=== PATIENT | female | born 1985 | race Caucasian/White ===

== ENCOUNTER 2019-06-03 16:34 | Emergency (ER) | payer OTHER, MEDICAID, SELFPAY ==
[2019-06-03 17:00] VITALS: BP 117/70; PULSE 80; RESP 13; TEMP 37.1; O2SAT 100
[2019-06-03] MEDS: SILVER SULFADIAZINE 1% CREAM 50 GM 1 APPLIC TOP (18:09)
[2019-06-03] MEDS: DOXYCYCLINE HYCLATE 100 MG TABLET PO (18:10)
[2019-06-03] MEDS: TETANUS DIPHTHERIA TOXOIDS 0.5 ML VIAL IM (18:22)
[2019-06-03 18:40] VITALS: BP 126/77; PULSE 73; O2SAT 100
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
== END 2019-06-03 18:48 | disposition home or self-care (01) ==
PROVIDERS: Emergency Provider Nurse Practitioner Family
DX: L03.311 Cellulitis of abdominal wall (principal); T21.02XA Burn of unspecified degree of abdominal wall, initial encounter; X12.XXXA Contact with other hot fluids, initial encounter; Z23 Encounter for immunization
CPT/HCPCS: 90471; 90714; 99283

== ENCOUNTER 2019-06-11 19:09 | Emergency (ER) | payer OTHER, MEDICAID, SELFPAY ==
[2019-06-11 19:18] VITALS: BP 110/64; PULSE 93; RESP 14; TEMP 37.3; O2SAT 100
[2019-06-11] MEDS: SILVER SULFADIAZINE 1% CREAM 50 GM 1 APPLIC TOP (19:34)
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
== END 2019-06-11 19:45 | disposition home or self-care (01) ==
PROVIDERS: Emergency Provider Nurse Practitioner Family
DX: T21.02XA Burn of unspecified degree of abdominal wall, initial encounter (principal); L03.818 Cellulitis of other sites
CPT/HCPCS: 99281

== ENCOUNTER 2024-11-02 08:36 | Emergency (ER) | payer SELFPAY ==
[2024-11-02 08:52] VITALS: BP 109/74; PULSE 98; O2SAT 99
[2024-11-02 09:00] VITALS: BP 111/81; PULSE 89; O2SAT 98
[2024-11-02 09:06] VITALS: BP 109/74; PULSE 89; RESP 12; TEMP 36.6; O2SAT 99; BMI 19.0
[2024-11-02 09:10] VITALS: BMI 19.0
--- NOTE | 2024-11-02 09:14 | DI.US.S_ITS ---
PROCEDURE: US PELVIC COMPLETE INDICATIONS: 9 WEEKS PREG; HEAVY BLEEDING TECHNIQUE: Real-time scanning was performed of the pelvic organs, with image documentation. Additional endovaginal scanning was necessary due to incomplete visualization of the adnexal and endometrial structures by transabdominal scanning. COMPARISON: None. FINDINGS: Uterus: Uterus is anteverted and normal in size at 3.4 x 7.3 x 8.2 cm. The myometrium is homogeneous. The endometrium measures 3 mm combined thickness. No evidence of intrauterine Ovaries: Right ovary not visualized. Left ovary unremarkable. No adnexal mass. Other: No pathologic free abdominal or pelvic fluid. IMPRESSION: No evidence of intrauterine or retained products of conception Approved by: Miguelangel Maurice M.D. on 11/02/2024 at 9:43
--- NOTE | 2024-11-02 09:16 | ED_ITS ---
HPI - Female Genitourinary General Chief complaint: Vaginal Bleeding Stated complaint: Possible miscarriage Time Seen by Provider: 11/02/24 09:15 Source: patient and family Mode of arrival: Ambulatory Limitations: no limitations History of Present Illness HPI Narrative: 39-year-old female last menstrual period was 08/2024 reports positive test. Patient notes some mild abdominal cramping for the past 2 days and had bright red blood with spotting and a large gush of blood today. Patient states really did have any bleeding before today no spotting prior. She states pain is very minimal. She denies syncope, no fevers. Has a little nauseated yesterday. No vomiting. No chest pain or shortness of breath. No issues with bowel movements or urination. Patient states has been in the process of setting up appointments. Patient states no daily medications. No allergies reported. No regular tobacco, no daily alcohol no recreational drugs. She is accompanied by her sister and family friend. Patient notes she is A positive. Patient defers anything for pain. Review of Systems Review of Systems ROS Unobtainable: All systems reviewed & are unremarkable except as noted in HPI and below Patient History Medical History (Updated 11/02/24 @ 11:22 by Neena Evans DO) No significant past medical history Surgical History No pertinent past surgical history Exam Narrative Exam Narrative: GENERAL: Alert and oriented x three, thin female in mild distress HEENT: Head normocephalic, atraumatic, EOMI, pupils reactive, face symmetric, moist mucous membranes NECK: Supple, full range of motion CARDIOVASCULAR: Regular rate and rhythm without murmurs, rubs or gallops. RESPIRATORY: Breath sounds equal bilaterally, no wheezes rales or rhonchi. ABDOMEN: Soft, nontender. Nondistended. Normoactive bowel sounds all 4 quadrants. No guarding or rebound, rigidity, no mass : No CVA tenderness EXTREMITIES: Normal range of motion, no clubbing or edema. Neurovascularly intact NEUROLOGICAL: Cranial nerves II through XII grossly intact. Moving all extremities SKIN: Warm, dry, no petechiae, no rashes or lesions. Initial Vital Signs Initial Vital Signs: Vital Signs Pulse Rate 98 H 11/02/24 08:52 Blood Pressure 109/74 11/02/24 08:52 Pulse Oximetry 99 09/21/25 08:52 Course Orders Ordered: ED Orders 11/02/24 09:34 ABO RH Type Stat Complete Blood Count AUTO DIFF Stat Comprehensive Metabolic Panel Stat HCG Quantitative /Beta subunit Stat Vital Signs Vital signs: Vital Signs - 8 hr 11/02/24 11:31 11/02/24 11:41 Temperature 97 F L Pulse Rate 97 H Respiratory Rate 14 Blood Pressure 113/68 Pulse Oximetry 98 Oxygen Delivery Method Room Air MDM - Female Genitourinary Lab Data 11/02/24 09:34 11/02/24 09:34 Labs: Lab Results 11/02/24 Range/Units 09:34 WBC 9.7 (4.5-11.0) X10^3/uL RBC 4.45 (4.0-5.2) X10^6/uL Hgb 13.4 (12.0-16.0) g/dL Hct 39.4 (36-46) % MCV 88.5 (80-100) fL MCH 30.0 (26-34) PG MCHC 33.9 (30-36) % RDW 12.7 (11.6-14.8) % Plt Count 257 (150-400) X10^3/uL Neut % (Auto) 80.2 H (50-75) % Lymph % (Auto) 11.1 L (25-40) % [place] % (Auto) 7.8 (3-14) % Eos % (Auto) 0.6 L (2-4) % Baso % (Auto) 0.3 (0-2) % Neut # (Auto) 7800 H (1237-9299) /uL Lymph # (Auto) 1100 (2429-3231) /uL [place] # (Auto) 800 (0-900) /uL Eos # (Auto) 100 (0-450) /uL Baso # (Auto) 0 (0-100) /uL Sodium 133 L (137-145) mmol/L Potassium 4.0 (3.4-5.1) mmol/L Chloride 104 (98-107) mmol/L Carbon Dioxide 21 L (22-32) mmol/L BUN 7 (7-17) mg/dL Creatinine 0.59 (0.52-1.04) mg/dL Estimated GFR > 60 (>60) mL/min BUN/Creatinine Ratio 11.9 (6-22) Glucose 88 (70-99) mg/dL Calcium 8.7 (8.4-10.2) mg/dL Total Bilirubin 0.4 (0.2-1.3) mg/dL AST 24 (14-36) IU/L ALT 13 (<35) IU/L Alkaline Phosphatase 42 (38-126) U/L Total Protein 6.9 (6.3-8.2) g/dL Albumin 3.9 (3.5-5.0) g/dL Globulin 3.0 (1.7-4.1) g/dL Albumin/Globulin Ratio 1.3 (1.0-2.8) HCG, Quant 71352 mIU/mL Blood Type A Positive MDM Narrative Medical decision making narrative: Labs normal white count, hemoglobin and platelets, sodium is 133 CO2 is 21 chemistries are otherwise appropriate. HCG is greater than 15,000 Blood type is A positive Ultrasound pelvic complete shows no evidence answering or retained products of conception. Right ovary not visualized left ovary is unremarkable. No adnexal mass. No pathologic free abdominal or pelvic fluid. Patient states she has O-positive. Spoke with the patient appears may have had a missed miscarriage or complete miscarriage but would have her follow up for repeat hCG and ultrasound as right ovary was not visualized but there was no pathologic free fluid. Reviewed with the patient need for follow up. She expressed understanding. Discussed ectopic seems unlikely but should have repeat HCGs and possibly ultrasound imaging. Patient does not have follow up currently we will give contact for museum security chief. Discussed return precautions patient expresses understanding. Discharge Plan Departure Patient Disposition: Home Clinical Impression: Miscarriage Instructions: DI for Miscarriage Activity Restrictions/Additional Instructions: Follow up with museum security chief for serial hCG levels and possibly repeat ultrasound. If you do not have a provider you can follow up with the museum security chief included below. Your ultrasound does not visualize your right ovary very well but there was no free fluid or other changes. Appears you have likely had a miscarriage. Can take acetaminophen and/ibuprofen as needed for pain. Please return if you develop fevers, rapidly worsening abdominal back or flank pain, passing out, persistent vomiting, going through more than a pad or tampon an hour with bleeding or other new or concerning changes. Referrals: River Tse MD [Physician, PUTAWAY DRIVER] Stand Alone Forms: Patient Portal/API
[2024-11-02 09:43] LABS: Add Manual Diff / Slide Review NO; Hematocrit 39.4 % (36-46); Hemoglobin 13.4 g/dL (12.0-16.0); Lymphocytes Absolute Auto 1100 /uL (1100-4500); Mean Corpuscular HGB Conc 33.9 % (30-36); Mean Corpuscular Hemoglobin 30.0 PG (26-34); Mean Corpuscular Volume 88.5 fL (80-100); Platelet Count 257 X10^3/uL (150-400)
[2024-11-02 10:46] LABS: Alanine Aminotransferase 13 IU/L (<35); Albumin 3.9 g/dL (3.5-5.0); Albumin Globulin Ratio 1.3 (1.0-2.8); Alkaline Phosphatase 42 U/L (38-126); Blood Urea Nitrogen 7 mg/dL (7-17); Calcium 8.7 mg/dL (8.4-10.2); Carbon Dioxide 21 mmol/L (22-32); Chloride 104 mmol/L (98-107); Estimated Glomerular Filt Rate > 60 mL/min (>60); Globulin 3.0 g/dL (1.7-4.1); Glucose 88 mg/dL (70-99); HEMOLYSIS < 15 (0-50); Potassium 4.0 mmol/L (3.4-5.1); Sodium 133 mmol/L (137-145); Total Protein 6.9 g/dL (6.3-8.2)
[2024-11-02 11:31] VITALS: PULSE 97; RESP 14; TEMP 36.1; O2SAT 98
[2024-11-02 11:39] LABS: HCG Quantitative /Beta subunit 95343 mIU/mL
[2024-11-02 11:41] VITALS: BP 113/68
== END 2024-11-02 11:42 | disposition home or self-care (01) ==
PROVIDERS: Emergency Provider Emergency Medicine
DX: O03.9 Complete or unspecified spontaneous abortion without complication (principal)
CPT/HCPCS: 76830; 76856; 80053; 84702; 85025; 86900; 86901; 99283; 99284

== ENCOUNTER → 2024-11-05 16:44 | Emergency (ER) | payer SELFPAY ==
[2024-11-05 17:10] VITALS: BP 110/73; PULSE 81; RESP 16; TEMP 36.8; O2SAT 98; BMI 19.0
--- NOTE | 2024-11-05 18:10 | ED.PREGNANCY ---
HPI - <Astrid Louis PA-C - Last Filed: 11/05/24 18:55> General Chief complaint: Vaginal Bleeding Stated complaint: had miscarriage 3days ago in pain Time Seen by Provider: 11/05/24 17:27 Source: patient Mode of arrival: Family Vehicle Limitations: no limitations History of Present Illness HPI Narrative: Leah Schwartz is a pleasant 39-year-old female, , positive home test with LMP 08/31/2024 (9 weeks 3 days based on LMP) who presents to the emergency department for pain and vaginal bleeding with suspected miscarriage 3 days ago. This current was unexpected for the patient, she is a 17 and 12-year-old born vaginally. She was in the ER on 11/02/2024 she was experiencing vaginal bleeding in . At that time her hCG quant was elevated and her ultrasound did not reveal an IUP and there was concern for completed miscarriage at that time she was recommended to follow up for serial HCGs/ultrasound. She was however instructed to return to the ER if she developed any pain, patient states yesterday she did develop pain in the right lower quadrant of her abdomen and occasionally the left lower quadrant as well. She describes this pain is intermittent with a dull pressure in her suprapubic region as well especially with having a bowel movement. Reports bleeding at this time is very minimal with just very faint spotting. She denies chest pain, shortness of breath, fevers, chills, dysuria. Related Data Allergies Allergy/AdvReac Type Severity Reaction Status Date / Time No Known Drug Allergies Allergy Verified 11/05/24 10:41 Review of Systems <Astrid Louis PA-C - Last Filed: 11/05/24 18:55> Review of Systems ROS Unobtainable: All systems reviewed & are unremarkable except as noted in HPI and below Exam <Astrid Louis PA-C - Last Filed: 11/05/24 18:55> Narrative Exam Narrative: GENERAL: 39 year old patient appears stated age. Well-developed patient, in no acute distress. HEAD: Atraumatic. Normocephalic. EYES: No scleral icterus. No injection or drainage. NECK: Trachea midline. Cervical ROM intact. CARDIOVASCULAR: Regular rate and rhythm. RESPIRATORY: ?Nonlabored respirations. ?Speaking in clear, full sentences. ?Clear to auscultation. Breath sounds equal bilaterally. No wheezes, rales, or rhonchi. ? GASTROINTESTINAL: Subjective tenderness to palpation of the right lower quadrant of the pelvis with no rebound or guarding. Bowel sounds present. Initial exam performed in triage room, pelvic exam deferred at this time. EXTREMITIES: No LE edema. BACK: No flank tenderness. NEURO: AOx3. ?Clear speech. ?Moves all 4 extremities appropriately. SKIN: No rash or erythema of visible areas Initial Vital Signs Initial Vital Signs: Vital Signs Temperature 98.2 F 11/05/24 17:10 Pulse Rate 81 11/05/24 17:10 Respiratory Rate 16 11/05/24 17:10 Blood Pressure 110/73 11/05/24 17:10 Pulse Oximetry 98 11/05/24 17:10 Oxygen Delivery Method Room Air 11/05/24 17:10 <Marina Alexis DO - Last Filed: 11/06/24 01:08> Initial Vital Signs Initial Vital Signs: Vital Signs Temperature 98.2 F 11/05/24 17:10 Pulse Rate 81 11/05/24 17:10 Respiratory Rate 16 11/05/24 17:10 Blood Pressure 110/73 11/05/24 17:10 Pulse Oximetry 98 11/05/24 17:10 Oxygen Delivery Method Room Air 11/05/24 17:10 Course <Astrid Louis PA-C - Last Filed: 11/05/24 18:55> Orders Ordered: ED Orders 11/05/24 18:11 Complete Blood Count AUTO DIFF Stat Comprehensive Metabolic Panel Stat HCG Quantitative /Beta subunit Stat PT [Prothrombin Time INR] Stat PTT Partial Thromboplastin Nader Stat 11/05/24 18:15 Ictotest Urine Stat Urine Culture Stat Urine Microscopic Stat 11/05/24 18:16 US pelvic complete Stat Discontinued Medications Methotrexate (Methotrexate 25 Mg/Ml Vial) 80 mg 50 mg/m2 (80 mg) IM NOW ONE Stop: 11/05/24 20:52 Last Admin: 11/05/24 22:19 Dose: 80 mg Documented By: LIYAH Vital Signs Vital signs: Vital Signs - 8 hr 11/05/24 17:10 11/05/24 22:23 11/05/24 22:24 Temperature 98.2 F Pulse Rate 81 Respiratory Rate 16 Blood Pressure 110/73 106/68 Pulse Oximetry 98 97 Oxygen Delivery Method Room Air 11/05/24 22:24 11/05/24 22:31 Temperature Pulse Rate 70 67 Respiratory Rate 16 Blood Pressure 106/68 Pulse Oximetry 99 99 Oxygen Delivery Method Room Air <Marina Alexis DO - Last Filed: 11/06/24 01:08> Orders Ordered: ED Orders 11/05/24 18:11 Complete Blood Count AUTO DIFF Stat Comprehensive Metabolic Panel Stat HCG Quantitative /Beta subunit Stat PT [Prothrombin Time INR] Stat PTT Partial Thromboplastin Nader Stat 11/05/24 18:15 Ictotest Urine Stat Urine Culture Stat Urine Microscopic Stat 11/05/24 18:16 US pelvic complete Stat Discontinued Medications Methotrexate (Methotrexate 25 Mg/Ml Vial) 80 mg 50 mg/m2 (80 mg) IM NOW ONE Stop: 11/05/24 20:52 Last Admin: 11/05/24 22:19 Dose: 80 mg Documented By: LIYAH Vital Signs Vital signs: Vital Signs - 8 hr 11/05/24 17:10 11/05/24 22:23 11/05/24 22:24 Temperature 98.2 F Pulse Rate 81 Respiratory Rate 16 Blood Pressure 110/73 106/68 Pulse Oximetry 98 97 Oxygen Delivery Method Room Air 11/05/24 22:24 11/05/24 22:31 Temperature Pulse Rate 70 67 Respiratory Rate 16 Blood Pressure 106/68 Pulse Oximetry 99 99 Oxygen Delivery Method Room Air MDM - OB/Uterine Contractions <Astrid Louis PA-C - Last Filed: 11/05/24 18:55> Medical Records Attestation: I reviewed the patient's medical records. Lab Data 11/05/24 18:11 11/05/24 18:11 Labs: Lab Results 11/05/24 11/05/24 Range/Units 18:11 18:15 WBC 9.1 (4.5-11.0) X10^3/uL RBC 4.42 (4.0-5.2) X10^6/uL Hgb 13.3 (12.0-16.0) g/dL Hct 39.1 (36-46) % MCV 88.3 (80-100) fL MCH 30.1 (26-34) PG MCHC 34.1 (30-36) % RDW 12.7 (11.6-14.8) % Plt Count 286 (150-400) X10^3/uL Neut % (Auto) 76.1 H (50-75) % Lymph % (Auto) 16.4 L (25-40) % [place] % (Auto) 6.3 (3-14) % Eos % (Auto) 0.8 L (2-4) % Baso % (Auto) 0.4 (0-2) % Neut # (Auto) 6900 (9307-3239) /uL Lymph # (Auto) 1500 (7052-7276) /uL [place] # (Auto) 600 (0-900) /uL Eos # (Auto) 100 (0-450) /uL Baso # (Auto) 0 (0-100) /uL PT 9.8 (9.4-12.5) SECONDS INR 0.9 (0.9-1.3) APTT 27 (25.1-36.5) SECONDS Sodium 136 L (137-145) mmol/L Potassium 4.0 (3.4-5.1) mmol/L Chloride 105 (98-107) mmol/L Carbon Dioxide 26 (22-32) mmol/L BUN 10 (7-17) mg/dL Creatinine 0.64 (0.52-1.04) mg/dL Estimated GFR > 60 (>60) mL/min BUN/Creatinine Ratio 15.6 (6-22) Glucose 118 H (70-99) mg/dL Calcium 9.1 (8.4-10.2) mg/dL Total Bilirubin 0.3 (0.2-1.3) mg/dL AST 33 (14-36) IU/L ALT 25 (<35) IU/L Alkaline Phosphatase 44 (38-126) U/L Total Protein 7.4 (6.3-8.2) g/dL Albumin 4.2 (3.5-5.0) g/dL Globulin 3.2 (1.7-4.1) g/dL Albumin/Globulin Ratio 1.3 (1.0-2.8) HCG, Quant 8312.9 mIU/mL Ur Bilirubin Confirm Negative (Negative) Urine RBC 0-1/hpf (0-5/HPF) Urine WBC None seen (0-5/HPF) Ur Squamous Epith Cells 1-5 /hpf (0-5/HPF) Urine Bacteria None seen (None) Vol Urine Centrifuged 10ml (spun) Urine Dip Bedside Urine Glucose Negative Bedside Urine Bilirubin + 1 Bedside Urine Ketone +/- 5 Urine Specific [place] 1.030 Bedside Urine Occult Blood +++ Bedside Urine pH 6.0 Bedside Urine Protein +/- 15 Bedside Urine Urobilinogen - Negative Bedside Urine Nitrite - Negative Bedside Urine Leukocytes - Negative Esterase MDM Narrative Medical decision making narrative: 39-year-old female, , positive home test with LMP 08/31/2024 (9 weeks 3 days based on LMP) who presents to the emergency department for pain and vaginal bleeding with suspected miscarriage 3 days ago. Differential diagnosis includes but is not limited to miscarriage, retained products of conception, ovarian cyst, fibroids, ectopic , etc. On exam the patient is in no acute distress, nontoxic-appearing, all vital signs within normal limits. She does have mild tenderness to palpation of the right lower quadrant of the abdomen. Reviewed ER visit from 11/02/2024 which revealed an hCG quant of 95,343 and a pelvic ultrasound with no evidence of intrauterine or retained products of conception. Patient was diagnosed with a miscarriage at that time, she was pain-free at that time, however today she comes in with pain since yesterday. We will repeat hCG quant, ultrasound, CBC, CMP, coags. Blood type is A positive, confirmed last visit. Labs reveal hCG quant of 8,312.9 which has gone down significantly from 3 days ago. Remainder of labs are reassuring with normal WBC count 9.1, hemoglobin 13.3 hematocrit 39.1. Normal coags. Sodium 136, potassium 4.0. BUN 10 creatinine 0.64. Normal LFTs. 1900: Due to shift change, transfer of care to Dr. Alexis. Pelvic US is pending at this time. <Marina Alexis, DO - Last Filed: 11/06/24 01:08> Lab Data Labs: Lab Results 11/05/24 11/05/24 Range/Units 18:11 18:15 WBC 9.1 (4.5-11.0) X10^3/uL RBC 4.42 (4.0-5.2) X10^6/uL Hgb 13.3 (12.0-16.0) g/dL Hct 39.1 (36-46) % MCV 88.3 (80-100) fL MCH 30.1 (26-34) PG MCHC 34.1 (30-36) % RDW 12.7 (11.6-14.8) % Plt Count 286 (150-400) X10^3/uL Neut % (Auto) 76.1 H (50-75) % Lymph % (Auto) 16.4 L (25-40) % [place] % (Auto) 6.3 (3-14) % Eos % (Auto) 0.8 L (2-4) % Baso % (Auto) 0.4 (0-2) % Neut # (Auto) 6900 (5315-9905) /uL Lymph # (Auto) 1500 (8979-2452) /uL [place] # (Auto) 600 (0-900) /uL Eos # (Auto) 100 (0-450) /uL Baso # (Auto) 0 (0-100) /uL PT 9.8 (9.4-12.5) SECONDS INR 0.9 (0.9-1.3) APTT 27 (25.1-36.5) SECONDS Sodium 136 L (137-145) mmol/L Potassium 4.0 (3.4-5.1) mmol/L Chloride 105 (98-107) mmol/L Carbon Dioxide 26 (22-32) mmol/L BUN 10 (7-17) mg/dL Creatinine 0.64 (0.52-1.04) mg/dL Estimated GFR > 60 (>60) mL/min BUN/Creatinine Ratio 15.6 (6-22) Glucose 118 H (70-99) mg/dL Calcium 9.1 (8.4-10.2) mg/dL Total Bilirubin 0.3 (0.2-1.3) mg/dL AST 33 (14-36) IU/L ALT 25 (<35) IU/L Alkaline Phosphatase 44 (38-126) U/L Total Protein 7.4 (6.3-8.2) g/dL Albumin 4.2 (3.5-5.0) g/dL Globulin 3.2 (1.7-4.1) g/dL Albumin/Globulin Ratio 1.3 (1.0-2.8) HCG, Quant 8312.9 mIU/mL Ur Bilirubin Confirm Negative (Negative) Urine RBC 0-1/hpf (0-5/HPF) Urine WBC None seen (0-5/HPF) Ur Squamous Epith Cells 1-5 /hpf (0-5/HPF) Urine Bacteria None seen (None) Vol Urine Centrifuged 10ml (spun) Urine Dip Bedside Urine Glucose Negative Bedside Urine Bilirubin + 1 Bedside Urine Ketone +/- 5 Urine Specific [place] 1.030 Bedside Urine Occult Blood +++ Bedside Urine pH 6.0 Bedside Urine Protein +/- 15 Bedside Urine Urobilinogen - Negative Bedside Urine Nitrite - Negative Bedside Urine Leukocytes - Negative Esterase MDM Narrative Medical decision making narrative: 39-year-old female, , positive home test with LMP 08/31/2024 (9 weeks 3 days based on LMP) who presents to the emergency department for pain and vaginal bleeding with suspected miscarriage 3 days ago. Differential diagnosis includes but is not limited to miscarriage, retained products of conception, ovarian cyst, fibroids, ectopic , etc. On exam the patient is in no acute distress, nontoxic-appearing, all vital signs within normal limits. She does have mild tenderness to palpation of the right lower quadrant of the abdomen. Reviewed ER visit from 11/02/2024 which revealed an hCG quant of 95,343 and a pelvic ultrasound with no evidence of intrauterine or retained products of conception. Patient was diagnosed with a miscarriage at that time, she was pain-free at that time, however today she comes in with pain since yesterday. We will repeat hCG quant, ultrasound, CBC, CMP, coags. Blood type is A positive, confirmed last visit. Labs reveal hCG quant of 8,312.9 which has gone down significantly from 3 days ago. Remainder of labs are reassuring with normal WBC count 9.1, hemoglobin 13.3 hematocrit 39.1. Normal coags. Sodium 136, potassium 4.0. BUN 10 creatinine 0.64. Normal LFTs. 1899: Due to shift change, transfer of care to Dr. Alexis. Pelvic US is pending at this time. 1929 Dr. Alexis-patient is signed out to me by PAC, I have seen evaluated patient might self. She is quite tender on the right side. Reports that she initially came in on the with some vaginal bleeding she reports significant slow of vaginal bleeding now just having spotting but really had intense right lower quadrant pain today. Vitals are stable she is not anemic but on exam she is tender. Ultrasound does show concern for possible right ectopic 1999 Dr. Rehman, OBGYN updated patient's symptoms test results and we will be in to see and evaluate patient. At this time treat only medically with IM methotrexate. Follow-up as an outpatient. Patient continues to appear well nonacute abdomen. Explained to family and sister who is quite concerned workup and test results, along with need for follow-up. Discharge Plan Departure Patient Disposition: Home Clinical Impression: Miscarriage, Adnexal mass Instructions: Ectopic , DI for Miscarriage Activity Restrictions/Additional Instructions: *You have been diagnosed with miscarriage *What to do: At this time please follow up with test driller, call tomorrow to schedule a follow up appointment. Expect to have some cramping *Continue to take medications as directed Tylenol Motrin as needed for pain *Follow up with your primary care provider in 2-3 days or call [phone] *Return to ER if you should have increasing pain passing out, or any new, worsening or concerning symptoms Referrals: Jimena Fuentes MD [Physician, SUPERVISOR LEAF [employer]ING REPAIR] Adelaida Zamarripa MD [Physician, SUPERVISOR [employer] SPRING REPAIR] Martha Langston DO [Physician, SUPERVISOR LE[employer] SPRING REPAIR] River Tse MD [Physician, SUPERVISOR LEAF [employer]ING REPAIR] Stand Alone Forms: Patient Portal/API
--- NOTE | 2024-11-05 18:16 | DI.US.S_ITS ---
PROCEDURE: US PELVIC COMPLETE INDICATIONS: ectopic? miscarriage? LMP 08/31/24; RLQ pain. Beta HCG was 95,000 on 11/02/24, and it now is less than 10,000. TECHNIQUE: Real-time scanning was performed of the pelvic organs, with image documentation. Additional endovaginal scanning was necessary due to incomplete visualization of the adnexal and endometrial structures by transabdominal scanning. COMPARISON: [facility], , US PELVIC COMPLETE, 11/02/2024, 9:11. FINDINGS: Uterus: Uterus is anteverted and enlarged in size at 12.2 x 8.8 x 8.2 cm. The myometrium is heterogeneous. The endometrium measures 21.2 mm combined thickness. Ovaries: The right ovary measures 1.9 x 3.8 x 2.5 cm, with a calculated ovarian volume of 9.2 cc. The left ovary measures 1.7 x 2.8 x 1.9 cm, with a calculated ovarian volume of 4.6 cc. The ovaries have a normal sonographic appearance. Less than 12 follicles can be seen in each ovary. No adnexal masses are seen. Possible right ovarian ectopic, not definite. It measures 2.3 x 1.5 x 1.9 cm. Other: No pathologic free abdominal or pelvic fluid. IMPRESSION: Question possible right ovarian ectopic . Significantly diminishing beta HCG level suggests that it may be a non living ectopic. No intrauterine . Comment: Comment: Findings were discussed with Dr. Alexis on 11/05/2024 at 1946 hours We strive to produce accurate, complete, and clear reports of imaging services. To assist us in improving patient care, this report was composed using standard report templates and voice recognition software. Therefore, it may contain abnormal punctuation, insertions and/or omissions. Occasional wrong-word or sound-alike substitutions may occur. Though we review the report and make efforts to correct it, we do recommend that the report be read carefully in proper context to recognize any text inaccuracies. Dictated by: Adalberto Holman M.D. on 11/05/2024 at 19:40 Approved by: Adalberto Holman M.D. on 11/05/2024 at 19:48
[2024-11-05 18:19] LABS: Add Manual Diff / Slide Review NO; Hematocrit 39.1 % (36-46); Hemoglobin 13.3 g/dL (12.0-16.0); Lymphocytes Absolute Auto 1500 /uL (1100-4500); Mean Corpuscular HGB Conc 34.1 % (30-36); Mean Corpuscular Hemoglobin 30.1 PG (26-34); Mean Corpuscular Volume 88.3 fL (80-100); Platelet Count 286 X10^3/uL (150-400)
[2024-11-05 18:28] LABS: INR 0.9 (0.9-1.3); Prothrombin Time 9.8 SECONDS (9.4-12.5)
[2024-11-05 18:31] LABS: PTT Partial Thromboplastin Tim 27 SECONDS (25.1-36.5)
[2024-11-05 18:33] LABS: Alanine Aminotransferase 25 IU/L (<35); Albumin 4.2 g/dL (3.5-5.0); Albumin Globulin Ratio 1.3 (1.0-2.8); Alkaline Phosphatase 44 U/L (38-126); Blood Urea Nitrogen 10 mg/dL (7-17); Calcium 9.1 mg/dL (8.4-10.2); Carbon Dioxide 26 mmol/L (22-32); Chloride 105 mmol/L (98-107); Estimated Glomerular Filt Rate > 60 mL/min (>60); Globulin 3.2 g/dL (1.7-4.1); Glucose 118 mg/dL (70-99); HEMOLYSIS < 15 (0-50); Potassium 4.0 mmol/L (3.4-5.1); Sodium 136 mmol/L (137-145); Total Protein 7.4 g/dL (6.3-8.2)
[2024-11-05 19:46] LABS: Ictotest Urine Negative (Negative)
--- NOTE | 2024-11-05 20:56 | P.HPOB_ITS ---
History of Present Illness History of Present Illness Reason for admission: vaginal bleeding and ectopic Narrative: Leah Schwartz is a 39 year old female with LMP 08/31/2024 presenting for RLQ cramping and vaginal bleeding. This was an undesired . Pain is crampy in nature, hurts more when she changes positions. She has experienced much worse pain in the past when she has had ovarian cyst ruptures. She was here on 11/02 a few days ago for vaginal bleeding and RLQ discomfort, with bleeding that included clots and tissue which has since resolved. Now only slight spotting. This was a surprise and she does not desire future . [facility] Medical History (Updated 11/05/24 @ 21:43 by Phyllis Rehman DO) No significant past medical history Surgical History No pertinent past surgical history Meds Home Medications and Allergies Allergies Allergy/AdvReac Type Severity Reaction Status Date / Time No Known Drug Allergies Allergy Verified 11/05/24 10:41 Review of Systems Review of Systems ROS: Yes All systems reviewed with the patient and are negative except as otherwise documented ENT Ears, Nose, Mouth, and Throat: No dizziness Cardiovascular Cardiovascular: Denies chest pain and Denies irregular heart rhythm Gastrointestinal Gastrointestinal: Reports abdominal pain (RLQ) Genitourinary Genitourinary: Reports abnormal vaginal bleeding Comments: Bleeding has resolved today Neurologic Neurologic: Denies dizziness Exam Vital Signs (past 8 hours): - 11/05/24 17:10 Temperature 98.2 F Pulse Rate 81 Respiratory Rate 16 Blood Pressure 110/73 Pulse Oximetry 98 Oxygen Delivery Method Room Air Oxygen Delivery Method Room Air Narrative Exam Narrative: Changing positions readily Const General: cooperative, healthy appearing and comfortable Orientation: alert, awake and oriented x3 Eyes Conjunctivae: conjunctivae normal Resp Effort & Inspection: normal respiratory effort and able to speak in complete sentences Cardio Rate: regular rate Rhythm: regular rhythm GI Inspection: non-distended Palpation: soft, No guarding, No rigid and tender (Mild in RLQ) Skin General: no rashes or lesions noted Neuro General: patient alert, patient awake and patient oriented x3 Extrem General: no clubbing, cyanosis or edema Psych Appearance: grossly normal Objective Imaging Pelvic US: My impression: Nondescript mass in Rt adnexa, no free fluid Radiologist's impression: Question possible right ovarian ectopic . Significantly diminishing beta HCG level suggests that it may be a non living ectopic. No intrauterine . Labs 11/05/24 18:11 11/05/24 18:11 Labs: Laboratory Results - last 24 hr 11/05/24 11/05/24 18:11 18:15 WBC 9.1 RBC 4.42 Hgb 13.3 Hct 39.1 MCV 88.3 MCH 30.1 MCHC 34.1 RDW 12.7 Plt Count 286 Neut % (Auto) 76.1 H Lymph % (Auto) 16.4 L [place] % (Auto) 6.3 Eos % (Auto) 0.8 L Baso % (Auto) 0.4 Neut # (Auto) 6900 Lymph # (Auto) 1500 [place] # (Auto) 600 Eos # (Auto) 100 Baso # (Auto) 0 PT 9.8 INR 0.9 APTT 27 Sodium 136 L Potassium 4.0 Chloride 105 Carbon Dioxide 26 BUN 10 Creatinine 0.64 Estimated GFR > 60 BUN/Creatinine Ratio 15.6 Glucose 118 H Calcium 9.1 Total Bilirubin 0.3 AST 33 ALT 25 Alkaline Phosphatase 44 Total Protein 7.4 Albumin 4.2 Globulin 3.2 Albumin/Globulin Ratio 1.3 HCG, Quant 8312.9 Ur Bilirubin Confirm Negative Urine RBC 0-1/hpf Urine WBC None seen Ur Squamous Epith Cells 1-5 /hpf Urine Bacteria None seen Vol Urine Centrifuged 10ml (spun) Assessment & Plan Assessment and plan (1) Miscarriage: Problem details: Reviewed this is likely etiology with visible passage of vaginal tissue prior to first US, and significant down-trending HCG from 14689 --> 8300. Status: Acute Plan: Discussed typical resolution of miscarriage, however need to trend HCG as below (2) Adnexal mass: Problem details: Reviewed non-descript mass in RLQ with mild pain, possibility of non-ruptured ectopic however with benign exam and stable vitals today, there is no indication for emergent surgical intervention. Reviewed that with significant down-trending HCG, even if this were an ectopic, as it is unlikely to continue growing her risks of future rupture are lower. Status: Acute Plan: Recommended methotrexate 50 mg/m2 for the possibility this may still be a non- ruptured ectopic and patient accepts this treatment. She has no contraindications to this therapy. She will need to return to ER for labs on days 4 (11/08/24) and 7 (11/11/24) after treatment. Expect to see continued downtrending HCG, with at least a 15% drop between HCGs drawn today and on day 7. Would then recommend trending HCG to 0. Plan Methotrexate single dose protocol. Return to ER on 11/08 and 11/11 for repeat HCG. She does not necessarily require additional ultrasound imaging unless her pain symptoms significantly worsen. Return precautions discussed. Time-Based Coding :: [TOTAL MINUTES] spent with patient and on the chart (including review of chart, obtaining history, exam, reviewing outside data, placing orders, documenting exam and treatment plan, and counseling patient) on [DATE].
[2024-11-05 22:23] VITALS: O2SAT 97
[2024-11-05 22:24] VITALS: BP 106/68; PULSE 70; O2SAT 99
[2024-11-05 22:31] VITALS: BP 106/68; PULSE 67; RESP 16; O2SAT 99
== END | disposition home or self-care (01) ==
PROVIDERS: Physician Assistant; Emergency Provider Emergency Medicine
DX: O03.9 Complete or unspecified spontaneous abortion without complication (principal); N94.89 Other specified conditions associated with female genital organs and menstrual cycle
CPT/HCPCS: 36415; 76830; 76856; 80053; 81003; 81015; 84702; 85025; 85610; 85730; 87086; 93975; 96372; 99284; J9250

== ENCOUNTER → 2024-11-07 15:09 | Outpatient (CLI) | payer SELFPAY ==
[2024-11-07 20:28] LABS: Urine N gonorrhoeae NOT DETECTED
[2024-11-07 20:32] LABS: Urine Chlamydia NOT DETECTED
== END ==
PROVIDERS: Visit Provider Obstetrics & Gynecology
DX: Z20.2 Contact with and (suspected) exposure to infections with a predominantly sexual mode of transmission (principal)
CPT/HCPCS: 87491; 87591

== ENCOUNTER → 2024-11-08 08:56 | Outpatient (CLI) | payer SELFPAY ==
[2024-11-08 10:30] LABS: HCG Quantitative /Beta subunit 3372.2 mIU/mL
== END ==
PROVIDERS: Referring Provider Obstetrics & Gynecology; Visit Provider Obstetrics & Gynecology
DX: O03.9 Complete or unspecified spontaneous abortion without complication (principal); N94.89 Other specified conditions associated with female genital organs and menstrual cycle
CPT/HCPCS: 36415; 84702

== ENCOUNTER → 2024-11-12 09:07 | Outpatient (CLI) | payer SELFPAY ==
[2024-11-12 11:09] LABS: HCG Quantitative /Beta subunit 1184.2 mIU/mL
== END ==
PROVIDERS: Referring Provider Obstetrics & Gynecology; Visit Provider Obstetrics & Gynecology
DX: O03.9 Complete or unspecified spontaneous abortion without complication (principal); N94.89 Other specified conditions associated with female genital organs and menstrual cycle
CPT/HCPCS: 36415; 84702

== ENCOUNTER → 2025-01-28 09:23 | Outpatient (CLI) | payer OTHER, SELFPAY ==
--- NOTE | 2025-01-28 09:25 | DI.US.S_ITS ---
US breast BI limited, MM diagnostic mammo BI: 01/28/2025 BI-RADS: 2 CLINICAL: 39-year old female for bilateral diagnostic mammogram and bilateral diagnostic breast ultrasound. Tyrer-Cuzick lifetime risk of 14.0%. No personal or first- degree family history of breast cancer. Current reported family history of breast cancer: paternal aunt. The patient reports a palpable abnormality (6 months) in the left breast. PRIOR EXAMS: None. This is a baseline mammogram. MAMMOGRAPHY TECHNIQUE: 2D and 3D (tomosynthesis) digital mammographic views obtained, with additional images as needed for full coverage. Current study was also evaluated with a Computer Aided Detection (CAD) system. ULTRASOUND TECHNIQUE Real-time mckeon scale and color doppler imaging of the area of clinical interest was performed with image documentation. TARGETED Bilateral Breast Ultrasound: Real-time ultrasound exam was performed focused to area of clinical and/or imaging concern. DENSITY D. The breasts are extremely dense, which lowers the sensitivity of mammography. MAMMOGRAPHY FINDINGS Right (finding-1): Upper Outer Quadrant, Posterior depth, measuring 0.7cm: There is a circumscribed, oval, equal-density mass present. Left (finding-2): Central, Anterior depth: A skin marker was placed in the area of concern, and no mammographic abnormalities are identified or to account for concern by the patient of a palpable lump. Left (finding-3): MLO only, Lower, Middle depth, measuring 1.5cm: There is an asymmetry seen only on one view. ULTRASOUND FINDINGS Right (finding-1): Upper Outer at 11:00, 5 cm from nipple, measuring 0.7 x 0.6 x 0.8 cm: Correlating with findings on mammogram, there is a simple anechoic cyst showing posterior acoustic enhancement. Doppler shows no vascularity. There are additional incidental simple cysts. Left (finding-2): Upper at 12:00, 2 cm from nipple, measuring 3.8 x 1.8 x 2.9 cm: Underlying surface marker and correlating with palpable lump there is a complicated cyst showing posterior acoustic enhancement. The cystic lesion contains fluid-debris level. Doppler shows no vascularity. Left: Upper Outer at 1:30, 4 cm from nipple, measuring 3.3 x 0.8 x 2.8 cm: There is a simple anechoic cyst showing posterior acoustic enhancement. Doppler shows no vascularity. Left (finding-3): Lower Inner at 7:00, 4 cm from nipple, measuring 1.5 x 1 x 1.4 cm: Correlating with findings on mammogram, there is a simple anechoic cyst showing posterior acoustic enhancement. Doppler shows no vascularity. IMPRESSION: * No evidence of malignancy with benign findings. RECOMMENDATIONS Bilateral * Annual screening mammography. COMMENTS: Findings and recommendations were conveyed to the patient during today's evaluation. The larger palpable cysts in the left breast are amenable to ultrasound-guided aspiration for symptomatic relief, if clinically desired. OVERALL ASSESSMENT CATEGORY BI-RADS-2: Benign. The [employer] recommends annual screening mammography beginning at age 40 for women with average risk of breast cancer. ELECTRONICALLY SIGNED: Vanessa Schwarz M.D. on 01/28/2025 at 11:31:42 AM PT Interpreting Station ID: [id number]
== END ==
PROVIDERS: PCP Physician Assistant; Referring Provider Physician Assistant; Visit Provider Physician Assistant
DX: N63.20 Unspecified lump in the left breast, unspecified quadrant (principal); N60.01 Solitary cyst of right breast; N60.02 Solitary cyst of left breast; R92.343 Mammographic extreme density, bilateral breasts; Z80.3 Family history of malignant neoplasm of breast
CPT/HCPCS: 76642; 77066; G0279